=== PATIENT | male | born 1970 | race Asian ===

== ENCOUNTER 2018-12-08 13:24 | Emergency (ER) | payer OTHER ==
[~2018-12-08] VITALS: Ht 175.3 cm; Wt 89.0 kg
[2018-12-08 13:34] VITALS: BP 129/77; PULSE 98; RESP 18; Ht 175.3 cm; Wt 89.0 kg
[2018-12-08] MEDS ORDERED: NAPR-985 PO ×2 (15:50→15:51)
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
== END 2018-12-08 16:01 | disposition home or self-care (01) ==
LOC: FTE 13:24
DX: M25.561 Pain in right knee (principal)
CPT/HCPCS: 73562

== ENCOUNTER 2018-12-11 20:33 | Emergency (ER) | payer OTHER ==
[~2018-12-11] VITALS: Wt 90.6 kg
[~2018-12-11 20:33] MED LIST: NAPR-985 PO
[2018-12-11 20:43] VITALS: BP 130/85; PULSE 58; RESP 22
[2018-12-11] MEDS ORDERED: KETOROLAC 60 MG INJ IM STA (21:48)
--- NOTE | 2018-12-11 21:51 | ERD ---
ER Documentation Chief Complaint Chief Complaint RT KNEE PAIN OVER 1WEEK PAIN NOT HPI Patient is a 48 years old male presenting to the clinic for persistent right knee pain. Patient was seen and evaluated on December 08, 2018 for similar symptoms. X-ray revealed no abnormality and patient was discharged with naproxen. Patient states that the pain has gotten severely worse where he wakes up sleep with significant pain. Patient states that the pain worsens with rest and improves with activity. Patient states pain is exclusively to right knee. ROS All systems reviewed and are negative except as per history of present illness. Medications Home Meds Active Scripts Meloxicam* (Meloxicam*) 7.5 Mg Tablet, 7.5 MG PO DAILY, #30 TAB Prov:ADAMARIS RODRIGUEZ PA-C 12/11/18 Naproxen* (Naprosyn*) 500 Mg Tablet, 500 MG PO Q6 PRN for PAIN AND/OR INFLAMMATION, #30 TAB Prov:VJ FORREST PA-C 12/08/18 Allergies Allergies: Coded Allergies: No Known Allergy (Unverified , 07/03/12) PMhx/Soc Medical and Surgical Hx: pt denies Medical Hx, pt denies Surgical Hx History of Surgery: No Anesthesia Reaction: No Hx Neurological Disorder: No Hx Respiratory Disorders: No Hx Cardiac Disorders: No Hx Psychiatric Problems: No Hx Miscellaneous Medical Probl: No Hx Alcohol Use: No Hx Substance Use: No Hx Tobacco Use: No Smoking Status: Never smoker Physical Exam Vitals Vital Signs Date Temp Pulse Resp B/P (MAP) Pulse Ox O2 O2 Flow FiO2 Time Delivery Rate 12/11/18 97.2 58 22 130/85 99 20:43 (100) Physical Exam Const: No acute distress Head: Atraumatic Eyes: Normal Conjunctiva Resp: Clear to auscultation bilaterally Cardio: Regular rate and rhythm, no murmurs Ext: No cyanosis, or edema Neur: Awake and alert Psych: Normal Mood and Affect Right knee exam: Warm to touch, Mild edema, No tenderness, Full ROM. Results 24 hrs Current Medications Medications Dose Sig/Hema Start Time Status Last (Trade) Ordered Route PRN Stop Time Admin Dose Reason Admin Ketorolac 60 mg ONCE STAT 12/11/18 DC Tromethamine IM 21:48 (Toradol) 12/11/18 21:49 Procedures/MDM Patient was seen and evaluated for right knee pain. Patient's symptoms most closely resembled rheumatoid arthritis and requires follow-up with rheumatologi . No Imaging required for today's visit is that his imaging was very done on December 08 without any abnormal findings. Departure Diagnosis: Primary Impression: Knee pain Chronicity: acute Laterality: right Qualified Codes: M25.561 - Pain in right knee Condition: Stable Patient Instructions: Knee Pain, Uncertain Cause Referrals: GINA VILLALPANDO MD Additional Instructions: Patient advised to return to the ED immediately for new or worsening symptoms. Patient advised to follow up with primary care provider in the next 24-48 hours. Patient verbalized understanding and agrees with treatment plan and course of action. If patient has no primary care they may follow up with [facility] + [facility] [address] [place] [id number] or [facility] [address] [place] [address] or [facility] [address] [place] [address] ADAMARIS RODRIGUEZ PA-C December 11, 2018 21:51
[2018-12-11] MEDS ORDERED: MELO7.5T38 PO (22:05)
== END 2018-12-11 22:31 | disposition home or self-care (01) ==
LOC: FTE 20:33
DX: M25.561 Pain in right knee (principal)
CPT/HCPCS: 96372; J1885